=== PATIENT | male | born 1955 | race American Indian/Alaskan Native ===

== ENCOUNTER 2019-03-25 11:45 | Emergency (ER) | payer MEDICARE ==
--- NOTE | 2019-03-25 11:59 | Event Note ---
ED Screening Note ED Screening Note: has not urinated in 2 days due to his enlarged prostate out of his flomax also need other meds refilled This initial assessment/diagnostic orders/clinical plan/treatment(s) is/are subject to change based on patients health status, clinical progression and re- assessment by fellow clinical providers in the ED. Further treatment and workup at subsequent clinical providers discretion. Patient/guardian urged not to elope from the ED as their condition may be serious if not clinically assessed and managed. Initial orders include: silvestre ua/culture check Cr
[2019-03-25] MEDS ORDERED: FLOMAX PO ONE (12:12)
--- NOTE | 2019-03-25 12:38 | Emergency Department Report ---
HPI - General Chief Complaint: Urogenital-Male Time Seen by Provider: 03/25/19 11:57 - HPI HPI: Room 25 The patient is a 63-year-old male presenting with a chief complaint of urinary retention. The patient has a history of BPH and states he ran out of his Flomax one week ago. Patient states he's been unable to urinate past 2 days. Patient has repeat pressure. Patient denies nausea or vomiting. The patient states he recently moved to [place] and has no physicians Location: Genitourinary system Duration: [See above] Quality: [See above] Severity: [See above] Modifying factors: [see above] Context: [see above] Mode of transportation: [not driving] ED Past Medical Hx - Past Medical History Hx Hypertension: Yes Additional medical history: High cholesterol, enlarged prostate. - Surgical History Past Surgical History?: No - Family History Family history: no significant - Social History Smoking Status: Never Smoker Substance Use Type: None (denies illicit drug use) - Medications Home Medications: Home Medications Medication Instructions Recorded Confirmed Last Taken Type Tamsulosin [Flomax] 0.4 mg PO QDAY #30 cap 03/25/19 Unknown Rx amLODIPine [Norvasc] 5 mg PO DAILY #90 tab 03/25/19 Unknown Rx ED Review of Systems ROS: Stated complaint: OUT OF MEDS Other details as noted in HPI Constitutional: denies: fever Eyes: denies: eye pain ENT: denies: throat pain Respiratory: no symptoms reported Cardiovascular: denies: chest pain Endocrine: no symptoms reported Gastrointestinal: abdominal pain. denies: nausea, vomiting Genitourinary: other (urinary retention) Musculoskeletal: denies: back pain Neurological: denies: headache Physical Exam - Physical Exam Vital Signs: Vital Signs 03/25/19 12:12 Temperature 97.7 F Pulse Rate 68 Respiratory 16 Rate Blood Pressure 163/90 [Left] O2 Sat by Pulse 98 Oximetry Physical Exam: GENERAL: The patient is well-developed well-nourished male sitting on chair not appearing to be in acute distress. [] HEENT: Normocephalic. Atraumatic. Extraocular motions are intact. Patient has moist mucous membranes. NECK: Supple. Trachea midline CHEST/LUNGS: Clear to auscultation. There is no respiratory distress noted. HEART/CARDIOVASCULAR: Regular. There is no tachycardia. There is no gallop rub or murmur. ABDOMEN: Abdomen is soft, with suprapubic fullness and discomfort. Patient has normal bowel sounds. There is no abdominal distention. SKIN: There is no rash. There is no edema. There is no diaphoresis. NEURO: The patient is awake, alert, and oriented. The patient is cooperative. The patient has normal speech and gait. MUSCULOSKELETAL: There is no evidence of acute injury. ED Course Vital Signs 03/25/19 12:12 Temperature 97.7 F Pulse Rate 68 Respiratory 16 Rate Blood Pressure 163/90 [Left] O2 Sat by Pulse 98 Oximetry ED Medical Decision Making - Lab Data Result diagrams: 03/25/19 12:23 03/25/19 12:23 Laboratory Tests 03/25/19 03/25/19 03/25/19 12:23 12:23 13:35 WBC 10.8 RBC 4.82 Hgb 14.1 Hct 42.2 MCV 88 MCH 29 MCHC 33 RDW 16.7 H Plt Count 202 Sodium 142 Potassium 3.8 Chloride 104.7 Carbon Dioxide 21 L Anion Gap 20 BUN 15 Creatinine 1.2 Estimated GFR > 60 BUN/Creatinine Ratio 13 Glucose 95 Calcium 9.6 Urine Color Yellow Urine Turbidity Clear Urine pH 6.0 Ur Specific [place] 1.010 Urine Protein <15 mg/dl Urine Glucose (UA) Neg Urine Ketones 20 Urine Blood Sm Urine Nitrite Neg Urine Bilirubin Neg Urine Urobilinogen < 2.0 Ur Leukocyte Esterase Neg Urine WBC (Auto) < 1.0 Urine RBC (Auto) 2.0 Urine Mucus Few - Differential Diagnosis urinary retention Critical care attestation.: If time is entered above; I have spent that time in minutes in the direct care of this critically ill patient, excluding procedure time. ED Disposition Clinical Impression: Urinary retention Disposition: DC-01 TO HOME OR SELFCARE Is pt being admited?: No Does the pt Need Aspirin: No Condition: Stable Instructions: Urinary Retention in Men (ED), Urinary Leg Bag (GEN) Additional Instructions: Return to the emergency department immediately should you develop worsening symptoms, fever, inability to tolerate food or liquid or any other concerns. Prescriptions: Tamsulosin [Flomax] 0.4 mg PO QDAY #30 cap amLODIPine [Norvasc] 5 mg PO DAILY #90 tab Referrals: CAPO CERNA MD [Primary Care Provider] - 3-5 Days KHADIJAH JACKSON MD [Staff Physician] - 3-5 Days (Dr. Jackson is a urologist. Please follow up with him for further evaluation) Time of Disposition: 14:07
[2019-03-25 12:51] LABS: Hematocrit 42.2 % (35.5-45.6); Hemoglobin 14.1 gm/dl (11.8-15.2); Mean Corpuscular HGB Conc 33 % (32-34); Mean Corpuscular Volume 88 fl (84-94); Platelet Count 202 K/mm3 (140-440); Red Blood Count 4.82 M/mm3 (3.65-5.03); Red Cell Distribution Width 16.7 % (13.2-15.2)
[2019-03-25 13:09] LABS: BUN/Creatinine Ratio 13; Blood Urea Nitrogen 15 mg/dL (9-20); Calcium 9.6 mg/dL (8.4-10.2); Hemolysis Index 4
[2019-03-25 13:52] LABS: Bilirubin,Urine NEG (Negative); Blood,Urine SM (Negative); Color,Urine Yellow (Yellow); Mucus,Urine FEW /HPF; Protein,Urine <15 mg/dL mg/dL (Negative); Urobilinogen,Urine < 2.0 mg/dL (<2.0); WBC,Urine < 1.0 /HPF (0.0-6.0)
[2019-03-25 15:06] VITALS: BP 158/90
== END 2019-03-25 15:07 | disposition home or self-care (01) ==
LOC: ED 11:45
DX: N40.1 Benign prostatic hyperplasia with lower urinary tract symptoms (principal); R33.8 Other retention of urine; I10 Essential (primary) hypertension; E78.00 Pure hypercholesterolemia, unspecified; Z79.899 Other long term (current) drug therapy
CPT/HCPCS: 36415; 80048; 81001; 85027

== ENCOUNTER 2019-04-03 11:52 | Emergency (ER) | payer MEDICARE ==
--- NOTE | 2019-04-03 12:03 | Event Note ---
ED Screening Note Date of service: 04/03/19 Time: 12:02 ED Screening Note: here to have catheter removed placed on 03/25/19. This initial assessment/diagnostic orders/clinical plan/treatment(s) is/are subject to change based on patients health status, clinical progression and re- assessment by fellow clinical providers in the ED. Further treatment and workup at subsequent clinical providers discretion. Patient/guardian urged not to elope from the ED as their condition may be serious if not clinically assessed and managed. Initial orders include:
--- NOTE | 2019-04-03 12:22 | Emergency Department Report ---
ED General Adult HPI - General Chief complaint: Urogenital-Male Stated complaint: NEED CATH REMOVED Time Seen by Provider: 04/03/19 12:20 Source: patient Mode of arrival: Ambulatory Limitations: No Limitations - History of Present Illness Initial comments: 64-year-old male with history of BPH presents for Silvestre catheter removal. This was placed about 8 days ago in this emergency department after the patient had been out of his Flomax. He presents today requesting removal denying any complaints other than "it is irritating him". -: Gradual, days(s) Location: genitals Radiation: non-radiation Severity scale (0 -10): 0 Improves with: none Worsens with: none Associated Symptoms: denies other symptoms Treatments Prior to Arrival: none - Related Data Previous Rx's Medication Instructions Recorded Last Taken Type Tamsulosin [Flomax] 0.4 mg PO QDAY #30 cap 03/25/19 Unknown Rx amLODIPine [Norvasc] 5 mg PO DAILY #90 tab 03/25/19 Unknown Rx cephALEXin [Keflex] 500 mg PO Q12HR #20 cap 04/03/19 Unknown Rx Allergies Allergy/AdvReac Type Severity Reaction Status Date / Time No Known Allergies Allergy Verified 04/03/19 12:01 ED Review of Systems ROS: Stated complaint: NEED CATH REMOVED Other details as noted in HPI Comment: All other systems reviewed and negative ED Past Medical Hx - Past Medical History Previous Medical History?: Yes Hx Hypertension: Yes Additional medical history: High cholesterol, enlarged prostate. - Surgical History Past Surgical History?: No - Social History Smoking Status: Never Smoker - Medications Home Medications: Home Medications Medication Instructions Recorded Confirmed Last Taken Type Tamsulosin [Flomax] 0.4 mg PO QDAY #30 cap 03/25/19 Unknown Rx amLODIPine [Norvasc] 5 mg PO DAILY #90 tab 03/25/19 Unknown Rx cephALEXin [Keflex] 500 mg PO Q12HR #20 cap 04/03/19 Unknown Rx ED Physical Exam - General Limitations: No Limitations General appearance: alert, in no apparent distress - Head Head exam: Present: atraumatic, normocephalic - Eye Eye exam: Present: normal appearance - ENT ENT exam: Present: mucous membranes moist - Neck Neck exam: Present: normal inspection - Respiratory Respiratory exam: Absent: respiratory distress - GI/Abdominal GI/Abdominal exam: Present: soft, normal bowel sounds. Absent: distended, tenderness - Rectal Rectal exam: Present: deferred - Extremities Exam Extremities exam: Present: normal inspection - Back Exam Back exam: Present: normal inspection - Neurological Exam Neurological exam: Present: alert, oriented X3 - Psychiatric Psychiatric exam: Present: normal affect, normal mood - Skin Skin exam: Present: warm, dry, intact, normal color. Absent: rash ED Course Vital Signs 04/03/19 04/03/19 12:01 13:13 Temperature 97.8 F Pulse Rate 76 65 Respiratory 16 18 Rate Blood Pressure 146/75 Blood Pressure 123/65 [Right] O2 Sat by Pulse 98 100 Oximetry - Reevaluation(s) Reevaluation #1: 04/03/19 13:41 Pt left without paperwork. ED Medical Decision Making - Medical Decision Making silvestre removed able to urinate foul smelling, cover with abx pending culture fu urology - Differential Diagnosis uti, bph Critical care attestation.: If time is entered above; I have spent that time in minutes in the direct care of this critically ill patient, excluding procedure time. ED Disposition Clinical Impression: Encounter for Silvestre catheter removal Disposition: - TO HOME OR SELFCARE Is pt being admited?: No Condition: Good Instructions: Benign Prostatic Hypertrophy (ED) Prescriptions: cephALEXin [Keflex] 500 mg PO Q12HR #20 cap Referrals: MUKUL YAÑEZ MD [Staff Physician] - 3-5 Days Time of Disposition: 13:38
[2019-04-03 13:14] VITALS: BP 123/65
[2019-04-03 14:03] LABS: Bacteria,Urine 1+ /HPF (Negative); Bilirubin,Urine NEG (Negative); Blood,Urine LG (Negative); Color,Urine Yellow (Yellow); Mucus,Urine FEW /HPF; Urobilinogen,Urine < 2.0 mg/dL (<2.0)
== END 2019-04-03 14:31 | disposition home or self-care (01) ==
LOC: ED 11:52
DX: Z46.6 Encounter for fitting and adjustment of urinary device (principal); I10 Essential (primary) hypertension; E78.00 Pure hypercholesterolemia, unspecified; Z79.899 Other long term (current) drug therapy
CPT/HCPCS: 81001; 87076; 87086; 87186; 99283

== ENCOUNTER 2019-06-07 12:20 | Emergency (ER) | payer MEDICARE ==
[2019-06-07 14:36] VITALS: BP 151/77
--- NOTE | 2019-06-07 14:37 | Emergency Department Report ---
ED Recheck HPI - General Chief Complaint: Back Pain/Injury Stated Complaint: MED REFILL Time Seen by Provider: 06/07/19 14:32 Source: patient Mode of arrival: Ambulatory Limitations: No Limitations - History of Present Illness Initial Comments: pt is a 64 yo male who presents to the ED with c/o medication refill. pt states he takes amlodipine 5 mg daily for HTN and takes tamsulosin 0.4 mg for BPH and liptor 20 mg for high cholesterol. pt states he moved here from [place] and does not have a PCP here. he denies any symptoms at all. - Related Data Previous Rx's Medication Instructions Recorded Last Taken Type cephALEXin [Keflex] 500 mg PO Q12HR #20 cap 04/03/19 Unknown Rx AtorvaSTATin [Lipitor] 20 mg PO QHS #30 tab 06/07/19 Unknown Rx Tamsulosin [Flomax] 0.4 mg PO QDAY #30 cap 06/07/19 Unknown Rx amLODIPine [Norvasc] 5 mg PO DAILY #30 tab 06/07/19 Unknown Rx Allergies Allergy/AdvReac Type Severity Reaction Status Date / Time No Known Allergies Allergy Verified 04/03/19 12:01 ED Review of Systems ROS: Stated complaint: MED REFILL Other details as noted in HPI Comment: All other systems reviewed and negative ED Past Medical Hx - Past Medical History Previous Medical History?: Yes Hx Hypertension: Yes Additional medical history: High cholesterol, enlarged prostate. - Surgical History Past Surgical History?: No - Social History Smoking Status: Never Smoker - Medications Home Medications: Home Medications Medication Instructions Recorded Confirmed Last Taken Type cephALEXin [Keflex] 500 mg PO Q12HR #20 cap 04/03/19 Unknown Rx AtorvaSTATin [Lipitor] 20 mg PO QHS #30 tab 06/07/19 Unknown Rx Tamsulosin [Flomax] 0.4 mg PO QDAY #30 cap 06/07/19 Unknown Rx amLODIPine [Norvasc] 5 mg PO DAILY #30 tab 06/07/19 Unknown Rx ED Physical Exam - General Limitations: No Limitations General appearance: alert, in no apparent distress - Head Head exam: Present: atraumatic, normocephalic - Eye Eye exam: Present: normal appearance - ENT ENT exam: Present: mucous membranes moist - Neurological Exam Neurological exam: Present: alert, oriented X3 - Psychiatric Psychiatric exam: Present: normal affect, normal mood - Skin Skin exam: Present: warm, dry, intact ED Course Vital Signs 06/07/19 14:33 Temperature 98.1 F Pulse Rate 66 Respiratory 16 Rate Blood Pressure 151/77 O2 Sat by Pulse 98 Oximetry ED Recheck MDM - Medical Decision Making pt is a 64 yo male who presents to the ED with c/o medication refill. pt states he takes amlodipine 5 mg daily for HTN and takes tamsulosin 0.4 mg for BPH and liptor 20 mg for high cholesterol. pt states he moved here from [place] and does not have a PCP here. he denies any symptoms at all. discussed with pt would give him a 1 month supply of his medication. advised pt to please take your medication as prescribed. please follow up with a primary care doctor for future refills of your medication. given a list of community resources. return to the emergency room for any new or worsening symptoms. Critical care attestation.: If time is entered above; I have spent that time in minutes in the direct care of this critically ill patient, excluding procedure time. ED Disposition Clinical Impression: Medication refill Disposition: - TO HOME OR SELFCARE Is pt being admited?: No Does the pt Need Aspirin: No Condition: Stable Additional Instructions: please take your medication as prescribed. please follow up with a primary care doctor for future refills of your medication. given a list of community resources. return to the emergency room for any new or worsening symptoms. Prescriptions: AtorvaSTATin [Lipitor] 20 mg PO QHS #30 tab Tamsulosin [Flomax] 0.4 mg PO QDAY #30 cap amLODIPine [Norvasc] 5 mg PO DAILY #30 tab Referrals: [facility] [Provider Group] - 2-3 Days [facility] [Outside] - 2-3 Days [facility] [Outside] - 2-3 Days Time of Disposition: 14:35 Print Language: AMERICAN
== END 2019-06-07 15:20 | disposition home or self-care (01) ==
LOC: ED 12:20
DX: I10 Essential (primary) hypertension (principal); E78.00 Pure hypercholesterolemia, unspecified; Z76.0 Encounter for issue of repeat prescription; Z79.899 Other long term (current) drug therapy
CPT/HCPCS: 99281

== ENCOUNTER 2019-07-23 10:48 | Emergency (ER) | payer MEDICARE ==
[2019-07-23 10:55] VITALS: BP 157/79
--- NOTE | 2019-07-23 11:21 | Emergency Department Report ---
ED Lower Extremity HPI - General Chief Complaint: Extremity Problem,Nontraumatic Stated Complaint: RT LEG SWELLING Time Seen by Provider: 07/23/19 11:08 Source: patient Mode of arrival: Ambulatory Limitations: No Limitations - History of Present Illness Initial Comments: This is a 64-year-old -[place] male who presents to the emergency room with swelling and pain of right leg from 1 week. Past medical history of BPH, hypertension, hyperlipidemia, and lupus. Reports prior history of DVT in right leg. Patient states he is wearing a compression some right leg when no improvement of symptoms. He is currently taking NSAIDs with no improvement of symptoms. Denies numbness or tingling, weakness, chest pain, cough, or shortness of breath. MD Complaint: leg injury (right) Onset/Timin -: week(s) Injury: Leg: Right Type of Injury: unknown Severity: mild Severity scale (0 -10): 3 Improves With: immobilization Worsens With: weight bearing, movement, palpation Associated Symptoms: swelling, ambulatory. denies: snap/pop sensation, numbness, tingling Treatments Prior to Arrival: NSAIDS - Related Data Previous Rx's Medication Instructions Recorded Last Taken Type cephALEXin [Keflex] 500 mg PO Q12HR #20 cap 04/03/19 Unknown Rx AtorvaSTATin [Lipitor] 20 mg PO QHS #30 tab 06/07/19 Unknown Rx Tamsulosin [Flomax] 0.4 mg PO QDAY #30 cap 06/07/19 Unknown Rx amLODIPine 5 mg PO DAILY #30 tab 06/07/19 Unknown Rx Ibuprofen [Motrin 800 MG tab] 800 mg PO TID PRN #30 tablet 07/23/19 Unknown Rx Allergies Allergy/AdvReac Type Severity Reaction Status Date / Time No Known Allergies Allergy Verified 04/03/19 12:01 ED Review of Systems ROS: Stated complaint: RT LEG SWELLING Other details as noted in HPI Constitutional: denies: chills, fever Respiratory: denies: cough, shortness of breath, wheezing Cardiovascular: denies: chest pain, palpitations Gastrointestinal: denies: abdominal pain, nausea, diarrhea Musculoskeletal: arthralgia (right lower extremity swelling and pain). denies: back pain, joint swelling Skin: denies: rash, lesions Neurological: denies: headache, weakness, paresthesias Psychiatric: denies: anxiety, depression ED Past Medical Hx - Past Medical History Previous Medical History?: Yes Hx Hypertension: Yes Additional medical history: High cholesterol, enlarged prostate. - Surgical History Past Surgical History?: Yes - Social History Smoking Status: Never Smoker Substance Use Type: None - Medications Home Medications: Home Medications Medication Instructions Recorded Confirmed Last Taken Type cephALEXin [Keflex] 500 mg PO Q12HR #20 cap 04/03/19 Unknown Rx AtorvaSTATin [Lipitor] 20 mg PO QHS #30 tab 06/07/19 Unknown Rx Tamsulosin [Flomax] 0.4 mg PO QDAY #30 cap 06/07/19 Unknown Rx amLODIPine 5 mg PO DAILY #30 tab 06/07/19 Unknown Rx Ibuprofen [Motrin 800 MG tab] 800 mg PO TID PRN #30 tablet 07/23/19 Unknown Rx ED Physical Exam - General Limitations: No Limitations General appearance: alert, in no apparent distress, obese - Respiratory Respiratory exam: Present: normal lung sounds bilaterally. Absent: respiratory distress, wheezes, rales, rhonchi, stridor - Cardiovascular Cardiovascular Exam: Present: regular rate, normal rhythm. Absent: bradycardia, tachycardia, irregular rhythm, systolic murmur, diastolic murmur, rubs, gallop - GI/Abdominal GI/Abdominal exam: Present: soft, normal bowel sounds - Expanded Lower Extremity Exam Right Hip exam: Present: normal inspection, full ROM Upper Leg exam: Present: normal inspection, full ROM Knee exam: Present: normal inspection, full ROM Lower Leg exam: Present: full ROM, tenderness, swelling, erythema (erythema and induration along anterior veins). Absent: abrasion, laceration, ecchymosis, deformity, crepidus, dislocation, palpable cord, Hawa's sign Ankle exam: Present: normal inspection, full ROM Foot/Toe exam: Present: normal inspection, full ROM Neuro vascular tendon exam: Present: no vascular compromise Gait: Positive: observed and limited by pain - Neurological Exam Neurological exam: Present: alert, oriented X3, normal gait - Psychiatric Psychiatric exam: Present: normal affect, normal mood - Skin Skin exam: Present: warm, dry, intact, normal color. Absent: rash ED Course Vital Signs 07/23/19 07/23/19 10:52 11:10 Temperature 97.8 F Pulse Rate 67 Respiratory 18 14 Rate Blood Pressure 157/79 O2 Sat by Pulse 97 Oximetry ED Lower Extremity MDM - Radiology Data Radiology results: report reviewed DUPLEX DOPPLER LOWER EXTREMITY VEINS, RIGHT INDICATION: swelling and pain, r/o DVT. TECHNIQUE: Duplex doppler imaging was performed through the veins of the right lower extremity using venous compression and other maneuvers. COMPARISON: No relevant prior imaging study available. FINDINGS: Right Common femoral vein: Negative. Right Superficial femoral vein: Negative. Right Popliteal vein: Negative. Right Calf veins: Negative. Additional findings: Chronic superficial thrombosis at the lesser saphenous vein. IMPRESSION: 1. Negative for DVT. 2. Chronic superficial thrombus at the lesser saphenous vein. - Medical Decision Making Patient was examined by me. Patient is nontoxic appearing and stable. PMH of BPH, HTN, HLD, and lupus. Vitals are normal. Obtained doppler of right lower extremity. Given analgesics while in the ER. 1. Negative for DVT. 2. Chronic superficial thrombus at the lesser saphenous vein. There are no obvious signs of infection indicating antibiotics are needed. Patient informed of doppler results. Instructed to take Tylenol or ibuprofen for pain. Follow up with PCP or return to the ER with worsening symptoms. Patient discharged home in stable condition. Critical care attestation.: If time is entered above; I have spent that time in minutes in the direct care of this critically ill patient, excluding procedure time. ED Disposition Clinical Impression: Superficial thrombophlebitis of right leg, Leg pain, right Disposition: - TO HOME OR SELFCARE Is pt being admited?: No Condition: Stable Instructions: Superficial Thrombophlebitis (ED), Arthralgia (ED) Additional Instructions: Take ibuprofen or tylenol for pain. Prescriptions: Ibuprofen [Motrin 800 MG tab] 800 mg PO TID PRN #30 tablet PRN Reason: Pain , Severe (7-10) Referrals: PRIMARY CARE, [Primary Care Provider] - 3-5 Days [facility] [Provider Group] - 3-5 Days [facility] [Provider Group] - 3-5 Days [facility] [Provider Group] - 3-5 Days Forms: Work/School Release Form(ED) Time of Disposition: 13:38
--- NOTE | 2019-07-23 13:14 | Vascular Lab Report ---
DUPLEX DOPPLER LOWER EXTREMITY VEINS, RIGHT INDICATION: swelling and pain, r/o DVT. TECHNIQUE: Duplex doppler imaging was performed through the veins of the right lower extremity using venous comp ression and other maneuvers. COMPARISON: No relevant prior imaging study available. FINDINGS: Right Common femoral vein: Negative. Right Superficial femoral vein: Negative. Right Popliteal vein: Negative. Right Calf veins: Negative. Additional findings: Chronic superficial thrombosis at the lesser saphenous vein. IMPRESSION: 1. Negative for DVT. 2. Chronic superficial thrombus at the lesser saphenous vein. Signer Name: Osbaldo Villafana MD Signed: 07/23/2019 1:10 PM Workstation Name: [id number]
[2019-07-23] MEDS ORDERED: IBUPROFEN 800 MG TAB PO ONE (13:34)
== END 2019-07-23 13:49 | disposition home or self-care (01) ==
LOC: ED 10:48
DX: I80.3 Phlebitis and thrombophlebitis of lower extremities, unspecified (principal); I10 Essential (primary) hypertension; E78.00 Pure hypercholesterolemia, unspecified